=== PATIENT | female | born 1985 | race Caucasian/White ===

== ENCOUNTER 2017-07-11 11:58 | Emergency (ER) | payer BC ==
[~2017-07-11] VITALS: Ht 160 cm; Wt 61.2 kg
[2017-07-11] MEDS ORDERED: BUSPIRONE HCL15 MG PO (12:14)
[2017-07-11] MEDS ORDERED: REMERON15 M1 PO (12:15)
[2017-07-11] MEDS ORDERED: KLONOPIN1 MG PO (12:15)
[2017-07-11] MEDS ORDERED: GABAPENTIN100 MG (12:16)
[2017-07-11] MEDS ORDERED: ZOFRAN ODT4 MG PO (16:09)
[2017-07-11] MEDS ORDERED: PERCOCET 5-3251 EACH PO (16:09)
--- NOTE | 2017-07-11 21:00 | EKG ---
[facility] [address] [facility] [place] [address] Signed Normal sinus rhythm Cannot rule out Anterior infarct , age undetermined Abnormal ECG No previous ECGs available Confirmed by MENA MUNOZ MD ([id number]) on 07/11/2017 9:00:02 PM Electronically Signed By: MENA MUNOZ MD 07/11/17 2100 PATIENT NAME: LEONIE RODRIGUEZ Electrocardiogram DATE OF : 83 PHYSICIAN: MENA MUNOZ MD REPORT #: [id number] REPORT IS CONFIDENTIAL AND NOT TO BE RELEASED WITHOUT AUTHORIZATION
== END 2017-07-11 16:24 | disposition home or self-care (01) ==
LOC: ED 11:58
DX: G43.909 Migraine, unspecified, not intractable, without status migrainosus (principal); F17.200 Nicotine dependence, unspecified, uncomplicated; Z98.890 Other specified postprocedural states; Z88.2 Allergy status to sulfonamides; Z88.1 Allergy status to other antibiotic agents; Z88.8 Allergy status to other drugs, medicaments and biological substances; Z79.899 Other long term (current) drug therapy
CPT/HCPCS: 70450; 80053; 84484; 84703; 85025; 93005; 93010; 96374; 99284; J1170

== ENCOUNTER 2017-09-23 04:00 | Emergency (ER) | payer BC ==
[~2017-09-23] VITALS: Ht 160 cm; Wt 54.4 kg
[~2017-09-23 04:00] MED LIST: BUSPIRONE HCL15 MG PO; GABAPENTIN100 MG; KLONOPIN1 MG PO; PERCOCET 5-3251 EACH PO; REMERON15 M1 PO; ZOFRAN ODT4 MG PO
[2017-09-23] MEDS ORDERED: TRAMADOL HCL50 MG PO (05:06)
== END 2017-09-23 05:29 | disposition home or self-care (01) ==
LOC: ED 04:00
DX: S40.011A Contusion of right shoulder, initial encounter (principal); F17.200 Nicotine dependence, unspecified, uncomplicated; Z88.1 Allergy status to other antibiotic agents; Z88.2 Allergy status to sulfonamides; Z88.8 Allergy status to other drugs, medicaments and biological substances; W18.30XA Fall on same level, unspecified, initial encounter
CPT/HCPCS: 73030; 99283

== ENCOUNTER 2017-09-29 05:13 | Emergency (ER) | payer BC ==
[~2017-09-29] VITALS: Ht 160 cm; Wt 54.4 kg
[~2017-09-29 05:13] MED LIST changes: +TRAMADOL HCL50 MG PO
== END 2017-09-29 06:19 | disposition home or self-care (01) ==
LOC: ED 05:13
PROC: 0HQEXZZ Repair Left Lower Arm Skin, External Approach (ICD-10-PCS; principal; 2017-09-29)
DX: S51.812A Laceration without foreign body of left forearm, initial encounter (principal); F17.200 Nicotine dependence, unspecified, uncomplicated; W25.XXXA Contact with sharp glass, initial encounter; Z88.2 Allergy status to sulfonamides; Z88.1 Allergy status to other antibiotic agents; Z88.8 Allergy status to other drugs, medicaments and biological substances; Z79.899 Other long term (current) drug therapy
CPT/HCPCS: 12002; 99282

== ENCOUNTER 2017-10-22 08:32 | Emergency (ER) | payer BC, OTHER ==
[~2017-10-22] VITALS: Ht 160 cm; Wt 52.2 kg
[2017-10-22] MEDS ORDERED: CLEOCIN HCL300 MG PO (09:08)
[2017-10-22] MEDS ORDERED: NORCO 5-325 TA1 EACH PO (09:08)
[2017-11-13] MEDS ORDERED: NORCO 5-325 TA1 EACH PO (22:49)
[2017-11-13] MEDS ORDERED: DOXYCYCLINE HY100 MG PO (22:49)
== END 2017-10-22 09:18 | disposition home or self-care (01) ==
LOC: ED 08:32
DX: S30.860A Insect bite (nonvenomous) of lower back and pelvis, initial encounter (principal); L02.31 Cutaneous abscess of buttock; F17.200 Nicotine dependence, unspecified, uncomplicated; Z88.0 Allergy status to penicillin; Z88.1 Allergy status to other antibiotic agents; Z88.2 Allergy status to sulfonamides; Z79.899 Other long term (current) drug therapy; W57.XXXA Bitten or stung by nonvenomous insect and other nonvenomous arthropods, initial encounter
CPT/HCPCS: 99283

== ENCOUNTER 2017-10-24 18:19 | Emergency (ER) | payer BC, OTHER ==
[~2017-10-24] VITALS: Ht 160 cm; Wt 52.2 kg
[~2017-10-24 18:19] MED LIST changes: +CLEOCIN HCL300 MG PO; +NORCO 5-325 TA1 EACH PO
[2017-10-24] MEDS ORDERED: NORCO 10-325 T1 EACH PO (18:33)
[2017-10-24] MEDS ORDERED: KEFLEX500 MG PO (18:33)
[2017-11-13] MEDS ORDERED: NORCO 5-325 TA1 EACH PO (22:49)
[2017-11-13] MEDS ORDERED: DOXYCYCLINE HY100 MG PO (22:49)
== END 2017-10-24 19:36 | disposition home or self-care (01) ==
LOC: ED 18:19
DX: L02.31 Cutaneous abscess of buttock (principal); Z88.2 Allergy status to sulfonamides; Z88.0 Allergy status to penicillin; Z88.8 Allergy status to other drugs, medicaments and biological substances; Z79.2 Long term (current) use of antibiotics; Z79.899 Other long term (current) drug therapy
CPT/HCPCS: 96372; 99283; J0696

== ENCOUNTER 2017-11-08 10:32 | Inpatient (IN) | payer BC, OTHER ==
[~2017-11-08] VITALS: Ht 160 cm; Wt 61.0 kg
[~2017-11-08 10:32] MED LIST changes: +KEFLEX500 MG PO; +NORCO 10-325 T1 EACH PO
--- NOTE | 2017-11-08 12:59 | NUR ---
11/08/17 Maurice9 Adrianne Perez 1252-PATIENT ARRIVED TO PACU ON 6L MASK O2 SAT 100% RN HOLDING AIRWAY. RIGHT HIP AND BUTTOCK DRESSING CDI. NONAROUSABLE SR 1256-PATIENT REACTIVE MOVING HEAD AND HAND.
--- NOTE | 2017-11-08 14:28 | NUR ---
PATIENT TO FLOOR VIA STRETCHER. TRANSFER TO BED WITH 3 PERS. ASSIST. PATIENT IS DROWZY BUT AROUSABLE. ABLE TO ANSWER YES AND NO QUESTION. DRESSING ON THE RIGHT HIP AND TOP OF COCCYX COVER WITH GAUZE AND MEPILEX. SMALL DRAINAGE NOTED ON DRESSING OVER R.HIP TOP OF COCCYX. IV SITES WNL. SCD ON. PATIENT HAS GENERALIZED SKIN LESIONS DUE THE METH USE. CHOUDHARY IN PLACE AND DRAINING WELL. PATIENT SAT 100% ON ROOM AIR. WILL CONTINUE TO MONITOR. CALL LIGHT IN REACH.
--- NOTE | 2017-11-08 15:35 | NUR ---
PATIENT RESTING IN BED STILL DROWZY BUT RESPONDED YES AND NO TO QUESTIONS. OPEN EYES AND MOVED ON LEFT SIDE FRO WOUND ASSESSMENT. DRESSING ON RIGHT HIP AND COCCYX HAS SOME DRAINAGE. WILL CONTINUE TO MONITOR
--- NOTE | 2017-11-08 16:30 | NUR ---
IN ROOM TO ASSESS PATIENT. PATIENT OPEN EYES AND RESPONDED TO QUESTIONS. MORE AWAKE. PATIENT WAS ABLE TO MOVE ON THE LEFT SIDE FOR WOUND ASSESSMENT. PEDAL PULSES STRONG AND PALPABLE. MORE DRAINAGE NOTED ON DRESSING. PATIENT REPORTS NO PAIN AT THIS TIME. VS WNL. WILL CONTINUE TO MONITOR.
--- NOTE | 2017-11-08 17:45 | NUR ---
IN TO ROOM TO ASSESS PATIENT. PATIENT MORE AWAKE. ABD PAD ON DRESSING WAS SATURATED. PAD CHANGED AND GAUZE REINFORCED. PATIENT TOLERATED DRESSING CHANGE WELL. PATIENT REPORTED THAT SHE IS HUNGRY DINNER WAS ORDERED. PATIENT ALSO REPORTED MILD PAIN AT THE RIGHT HIP WITH DRESSING. WILL CONTINUE TO MONITOR. VS STABLE. CALL LIGHT IN REACH.
--- NOTE | 2017-11-08 19:10 | NUR ---
SHIFT REPORT RECIEVED. PATIENT RESTING IN BED. DOES NOT AROUSE TO VOICE. BOYFRIEND ASLEEP ON THE COUGH. OTHER FAMILY IN ROOM. PULSE OX 02 SAT 98% ON ROOM AIR. CALL LIGHT IN REACH. BED ALARM ON.
--- NOTE | 2017-11-08 19:59 | NUR ---
PATIENT TO FLOOR FROM SURGERY. HAD BEEN DROWZY SINCE ARRIVAL TO FLOOR. A BIT MORE ALERT THIS PM. RIGHT HIP DRESSING WAS CHANGED. PEDAL PULSES PALPABLE AND EQUAL IN BOTH EXTREMITIES. VS STABLE, O2 SAT IN THE UPPER 90s. NO DISTRESS. GOOD SENSATION AND GOOD CAP REFILL. IV SITES PATENT AND FLUID INFUSING WELL. PATIENT REQUEST FOOD AND WAS NOT INTERESTED ON EATING. FAMILY IN ROOM
--- NOTE | 2017-11-08 22:04 | NUR ---
PATIENT RESTING IN BED. EYES ARE CLOSED. PATIENT AROUSED TO LOUD VOICE AND PRESSURE. PATIENT STATES "[facility] WHEN ASKED IF SHE KNEW WHERE SHE WAS. WHEN TOLD SHE WAS IN [place] SHE REPORTED REMEMBERING THAT. PATIENT ORIENTED TO THE DATE AND EVENT LEADING TO HER HOSPITAL STAY. PATIENT REPORTS SHE HAS "A LITTLE" PAIN. SHE IS FREQUENTLY DROWSEY. WOUND SITE IS COVERED IN GAUZE AND ABD DRESSING. NO SHADOWING VISIBLE. CHOUDHARY IN PLACE. SCDS IN USE. PATIENTS LUNGS CLEAR, DIMINISHED IN THE BASES. PATIENT'S BREATHING IS REGULAR AND SHALLOW, RR 17. PULSE OX 02 SAT 97% ON ROOM AIR. IV FLUIDS INFUSING. SITE WNL. BED ALARM ON. CALL LIGHT IN REACH.
--- NOTE | 2017-11-08 23:30 | NUR ---
PATIENT RESTING IN BED. BREATHING REGULAR AND NONLABORED. RR 18. PULSE OX O2 SAT 99% ON ROOM AIR. PATIENT'S BOYFRIEND AWAKE IN ROOM. HE DENIES NEEDS. CALL LIGHT IN REACH.
--- NOTE | 2017-11-09 01:00 | NUR ---
PATIENT WOKE UP AND WAS VERY ANXIOUS. SHE WAS ASKING TO GET OUT OF BED AND REPORTED FEELING UNCOMFORTABLE. RN ASSISTED THE PATIENT TO ROLL TO GET THE EXTRA BEDDING OUT FROM UNDER HER. PATIENT ABLE TO ROLL. SHE BEGAN TO CRY AND BREATHE RAPIDLY. RN COMFORTED PATIENT AND CALL FOR ASSIST. KEYSHAWN ALEGRE ADMINISTERED PRN MORPHINE. JOHNNY BELL ASSISTED THIS RN TO REPOSITIONED THE PATIENT. SHE WAS ABLE TO RELAX AND APPEARS TO BE SLEEPING. RR 18. THE BOYFRIEND LEFT TO GO HOME FOR THE NIGHT. CALL LIGHT IN REACH OF PATIENT AND BED ALARM ON.
--- NOTE | 2017-11-09 01:50 | NUR ---
patient resting. appears comfortable. rr17. pulse ox o2 sat 98%. bed alarm on.
--- NOTE | 2017-11-09 02:30 | NUR ---
PATIENT RESTING. EYES CLOSED. RR16. PULSE OX 02 SAT 96%.
--- NOTE | 2017-11-09 04:15 | NUR ---
PATIENT RESTING. APPEARS COMFORTABLE. LUNGS ARE CLEAR, DIMINISHED IN BASES. SHALLOW BREATHING. PATIENT ABLE TO STATE HER NAME, LOCATION, MONTH, AND EVENT LEADING TO HER STAY. SHE IS FREQUENTLY DROSWEY. ABD IS SOFT, BOWEL SOUNDS ACTIVE. CHOUDHARY IS DRAINING CLEAR YELLOW URINE. SCDS IN USE. SOME SHADOWING NOTED ON THE DRESSING ON RIGHT HIP. CALL LIGHT IN REACH. BED ALARM ON.
--- NOTE | 2017-11-09 05:30 | NUR ---
VITAL SIGNS COMPLETE. PATIENT IS FREQUENTLY DROSWEY AND ANXIOUS WHEN AWAKE. PATIENT ABLE TO ASSIST WITH ROLLING HERSELF TO CHANGE THE BEDDING. ANOTHER ABD PAD WAS APPLIED TO THE COCCYX AREA. MODERATE AMOUNT OF RED DRAINAGE NOTED. PATIENT MOANED ONCE IN PAIN BUT QUICKLY FELL ASLEEP AFTER ROLLING AND APPEARED COMFORTABLE. ALLOWED TO REST. CALL LIGHT IN REACH. BED ALARM ON.
--- NOTE | 2017-11-09 07:39 | NUR ---
RECIEVED BEDSIDE REPORT FROM KEYSHAWN QUEEN. PT SLEEPING, BREATHING EVEN AND UNLABORED. ROUSES TO VOICE, BUT DOES NOT WAKE. PT WILL ANSWER QUESTIONS WITH MUMBLES. DENIED PAIN, DENIED NEEDS AT THIS TIME.
--- NOTE | 2017-11-09 09:35 | NUR ---
PATIENT HAS BEEN SLEEPING, SENIOR GENETIC COUNSELOR CALLED TO TALK TO HER, I LET THE NURSE TALK TO HIM AND TAKE OVER THE CALL.
--- NOTE | 2017-11-09 10:00 | NUR ---
CHANGED DRESSING OVER WOUND SITES. ABD PADS AND GAUZE WERE SATURATED WITH RED BLOODY DRAINAGE. SKIN UNDER DRESSING IS CLEAN/DRY/INTACT. REDRESSED WITH GAUZE OVER WOUNDS, ABD PADS OVER GUAZE, AND SECURED WITH TAPE. PACKING STILL IN PLACE. LOOP DRAINS IN PLACE. MINIMAL BRUISING. RN FINISHED DRESSING CHANGE, DECTECTIVE PERSAUD AND DECTECTIVE FELISA CAME TO TALK TO PT. PT WAS AWAKE AND ALERT AND ABLE TO CONVERSE.
--- NOTE | 2017-11-09 11:35 | NUR ---
PT IN BED. FRESH ICE WATER. PICKED UP ROOM. REAJUSTIED CATH.
--- NOTE | 2017-11-09 12:45 | NUR ---
PT WALKED 1/4 LAP WITH 2 CNAS, TOLERATED VERY WELL. DENIED DIZZINESS, LIGHTHEADEDNESS, NAUSEA, VISION CHANGES. AT THE END OF THE WALK, ENDORCED PAIN 7/10. BACK IN CHAIR.
[2017-11-09] MEDS ORDERED: MAPAP325 MG PO (13:57)
[2017-11-09] MEDS ORDERED: HYDROCODON-ACE1 EA10 PO (13:57)
--- NOTE | 2017-11-09 14:19 | NUR ---
PT VITALS AND I AND O
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
[2017-11-13] MEDS ORDERED: NORCO 5-325 TA1 EACH PO (22:49)
[2017-11-13] MEDS ORDERED: DOXYCYCLINE HY100 MG PO (22:49)
== END 2017-11-09 15:10 | disposition home or self-care (01) | DRG 902 ==
LOC: ED 10:32 → DS 12:00 → DSVR 12:01 → MS 13:18 → DS 11-09 15:10
PROVIDERS: ADMIT Surgery
PROC: 0JB80ZZ Excision of Abdomen Subcutaneous Tissue and Fascia, Open Approach (ICD-10-PCS; principal; 2017-11-08 12:00)
DX: S31.143A Puncture wound of abdominal wall with foreign body, right lower quadrant without penetration into peritoneal cavity, initial encounter (principal); F15.20 Other stimulant dependence, uncomplicated; X93.XXXA Assault by handgun discharge, initial encounter; F17.210 Nicotine dependence, cigarettes, uncomplicated
CPT/HCPCS: 00400; 36415; 72170; 74177; 80053; 81001; 82150; 82550; 84703; 85025; 85610; 86850; 86900; 86901; 87077; 87088; 87186; 90471; 90715; 94762; 96374; 96375; 99285; G0480; J0330; J0690; J1170; J2270; J2405; J2704; J3010; J7120; Q9967

== ENCOUNTER 2017-12-04 15:05 | Emergency (ER) | payer BC ==
[~2017-12-04] VITALS: Ht 160 cm; Wt 61.0 kg
[~2017-12-04 15:05] MED LIST changes: +DOXYCYCLINE HY100 MG PO; +HYDROCODON-ACE1 EA10 PO; +MAPAP325 MG PO
[2017-12-04] MEDS ORDERED: CLEOCIN HCL300 MG PO (15:21)
== END 2017-12-04 15:22 | disposition home or self-care (01) ==
LOC: ED 15:05
DX: M79.89 Other specified soft tissue disorders (principal)

== ENCOUNTER 2017-12-12 20:33 | Emergency (ER) | payer OTHER ==
[~2017-12-12] VITALS: Ht 160 cm; Wt 61.0 kg
[2017-12-12] MEDS ORDERED: BACTRIM DS TAB1 EACH PO (21:15)
[2017-12-12] MEDS ORDERED: DOXYCYCLINE HY100 MG PO (23:38)
== END 2017-12-12 23:57 | disposition home or self-care (01) ==
LOC: ED 20:33
DX: L08.89 Other specified local infections of the skin and subcutaneous tissue (principal); F17.200 Nicotine dependence, unspecified, uncomplicated; Z88.2 Allergy status to sulfonamides; Z88.1 Allergy status to other antibiotic agents; Z79.899 Other long term (current) drug therapy
CPT/HCPCS: 87070; 99283

== ENCOUNTER 2021-12-06 03:36 | Emergency (ER) | payer MEDICAID ==
[~2021-12-06] VITALS: Ht 160 cm; Wt 70.5 kg
[~2021-12-06 03:36] MED LIST changes: +BACTRIM DS TAB1 EACH PO
--- OUTSIDE RECORDS SUMMARY | 2021-12-06 10:44 | XMS ---
PreManage Notification: LEONIE RODRIGUEZ Security Validation Software Facilitator Events No recent Security Events currently on file CRITERIA MET - Group Notification CARE PROVIDERS KEON NOE Nurse Practitioner Current I. PHONE: Unknown Luann has no Care Guidelines for this patient. Care History Medical/Surgical 12/05/2017 [facility] Care Recommendation: This patient has had 5 or more Emergency Department visits in the last 12 months. Patient requires education on the scope and purpose of the ED as an acute care provider not a Primary Care Provider and should not be utilized for chronic conditions. If patient returns to ED please contact Community Health Worker Leonie at [phone]. These are guidelines and the provider should exercise clinical judgment when providing care. E.D. VISIT COUNT (12 MO.) [address] [place] [address] TOTAL 1 NOTE: Visits indicate total known visits. ED/UCC VISIT TRACKING (12 MO.) 12/06/2021 03:[address] [facility] [place] TYPE: Emergency COMPLAINT: - PSYCHOLOGICAL EVAL INPATIENT VISIT TRACKING (12 MO.) No inpatient visits to display in this time frame [email or web address]
--- NOTE | 2021-12-06 16:23 | EKG ---
[facility] [address] [facility] [place] [address] Signed Sinus tachycardia Right atrial enlargement Borderline ECG When compared with ECG of 11-JUL-2017 12:13, Vent. rate has increased BY 58 BPM Questionable change in QRS axis T wave amplitude has decreased in Lateral leads Confirmed by ERAN CARTER DO ([id number]) on 12/06/2021 4:22:51 PM Electronically Signed By: ERAN CARTER DO 12/06/21 1623 PATIENT NAME: LEONIE RODRIGUEZ Electrocardiogram DATE OF : 83 PHYSICIAN: ERAN CARTER DO REPORT #: [id number] REPORT IS CONFIDENTIAL AND NOT TO BE RELEASED WITHOUT AUTHORIZATION
== END 2021-12-06 14:00 | disposition home or self-care (01) ==
LOC: ED 03:36
DX: F30.9 Manic episode, unspecified (principal); R74.01 Elevation of levels of liver transaminase levels; E80.6 Other disorders of bilirubin metabolism; E87.6 Hypokalemia; Z20.822 Contact with and (suspected) exposure to COVID-19; F17.200 Nicotine dependence, unspecified, uncomplicated; Z88.2 Allergy status to sulfonamides; Z88.8 Allergy status to other drugs, medicaments and biological substances; Z79.899 Other long term (current) drug therapy
CPT/HCPCS: 36415; 70450; 74177; 80053; 81001; 82553; 83735; 84443; 84703; 85025; 93005; 93010; 96375; 99285-25; C9803; G0480; J1630; J2405; J7030; U0003